=== PATIENT | male | born 1960 | race African-American/Black ===

== ENCOUNTER 2018-10-04 04:38 | Inpatient (IN) | payer SELFPAY ==
[2018-10-04 05:13] LABS: #Eosinphils 0.1 thou/uL (0.0-0.7); #Lymphocytes 2.4 thou/uL (1.20-3.40); #Monocytes 1.1 thou/uL (0.11-0.59); #Neutrophils 9.1 thou/uL (1.40-6.50); %Basophils 0.4 % (0.0-1.0); %Eosinophils 0.5 % (0.0-10.0); %Monocytes 8.4 % (0.0-10.0); %Neutrophils 71.8 % (42.0-75.0); Hemoglobin 12.7 g/dL (14.0-18.0); Platelet Count 207 thou/uL (130-400); RBC Distribution Width 12.8 % (11.5-14.5); Red Blood Cell (RBC) Count 4.23 mill/uL (4.70-6.10); White Blood Cell (WBC) Count 12.6 thou/uL (4.8-10.8)
[2018-10-04 05:37] LABS: ALT (SGPT) 116 U/L (8-55); AST (SGOT) 519 U/L (5-34); Albumin 3.9 g/dL (3.5-5.0); Alkaline Phosphatase 45 U/L (40-150); Anion Gap 13 mmol/L (10-20); BUN (Urea Nitrogen) 22 mg/dL (8.4-25.7); Bilirubin, Total 0.6 mg/dL (0.2-1.2); Calc. Creatinine Clearance 0 mL/min (70-130); Calcium 8.5 mg/dL (7.8-10.44); Carbon Dioxide 22 mmol/L (22-29); Chloride 105 mmol/L (98-107); Estimated GFR-MDRD 87; Globulin 2.7 g/dL (2.4-3.5); Glucose 99 mg/dL (70-105); Potassium 4.1 mmol/L (3.5-5.1); Protein, Total 6.6 g/dL (6.0-8.3); Sodium 136 mmol/L (136-145)
[2018-10-04 06:14] LABS: CK (CPK) 35920 U/L (30-200)
[2018-10-04 06:39] LABS: Anion Gap 14 mmol/L (10-20); BUN (Urea Nitrogen) 21 mg/dL (8.4-25.7); Calc. Creatinine Clearance 0 mL/min (70-130); Calcium 8.5 mg/dL (7.8-10.44); Carbon Dioxide 21 mmol/L (22-29); Chloride 105 mmol/L (98-107); Estimated GFR-MDRD Greater than 90; Glucose 103 mg/dL (70-105); Potassium 4.1 mmol/L (3.5-5.1); Sodium 136 mmol/L (136-145)
[2018-10-04 07:27] LABS: CKMB 367.3 ng/mL (0-6.6)
--- NOTE | 2018-10-04 08:56 | ULT ---
RIGHT UPPER QUADRANT ULTRASOUND: INDICATION: Low back pain for 2 days. COMPARISON: Prior CTA of the chest and abdomen dated 10/03/2018. FINDINGS: No visible gallstones seen within the gallbladder. No gallbladder wall thickening or pericholecystic fluid is evident. No sonographic Sharma's sign is reported. The common bile duct measured 4.2 mm. No focal hepatic lesion is evident. The right kidney measured 10.6 x 6.3 x 5.3 cm. No definite foc al renal lesion or hydronephrosis is evident. No free fluid is identified. IMPRESSION: No acute sonographic abnormality in the right upper quadrant. POS: BH
[2018-10-04] MEDS ORDERED: Lactated Ringer's 1,000 ML IV SCH (09:15)
[2018-10-04] MEDS ORDERED: Ondansetron PF 4 MG/2 ML Vial IVP PRN (10:10)
[2018-10-04] MEDS ORDERED: Diazepam 5 MG TAB PO PRN (10:58)
[2018-10-04] MEDS ORDERED: Multivitamin W/ Minerals 1 TAB PO SCH (11:00)
[2018-10-04] MEDS ORDERED: Thiamine HCl 200 MG/2 ML VIAL IM SCH (11:00)
[2018-10-04] MEDS ORDERED: Diazepam 5 MG TAB PO SCH (11:00)
[2018-10-04] MEDS ORDERED: Folic Acid 1 MG TAB PO SCH (11:00)
[2018-10-04] MEDS ORDERED: Enoxaparin Sodium 40 MG/0.4 ML SYRINGE SC SCH (11:00)
--- NOTE | 2018-10-04 11:45 | HP ---
PRIMARY CARE PHYSICIAN: Dr. Joss Fletcher. CHIEF COMPLAINT: Back pain. HISTORY OF PRESENT ILLNESS: A 57-year-old male patient with known history of hypertension and gout as well as chronic alcohol abuse, chronic tobacco use, who presented to [place] [facility] due to acute onset of severe back pain after drinking some whiskey as well as smoking some weed, which he thinks was laced with something. On presentation to the [place] [facility], the patient was noted to be hypotensive with severe back pain. He was treated with IV fluid with improvement in blood pressure. Further evaluation showed elevated lactic acid as well as leukocytosis. The patient also was found to have markedly elevated CK, more than 38,000 as well as acute increase in creatinine. He also was started on antibiotic therapy with vancomycin and Zosyn. He received about 4 L of crystalloid with improvement in creatinine, but CPK was trending up, hence the patient was transferred to the ER here for further evaluation and treatment. The patient continues to complain of back pain. Back pain improves with analgesic. PAST MEDICAL HISTORY: 1. Hypertension, on enalapril and hydrochlorothiazide. 2. Depression. 3. Gouty arthropathy. PAST SURGICAL HISTORY: None. FAMILY HISTORY: Significant for hypertension in mother and prostate cancer in father. Father is late. SOCIAL HISTORY: The patient lives with spouse. He reportedly drinks more than 5 drinks every day. He smokes about 2 to 3 packs of cigarettes daily. He also chews tobacco and also uses marijuana. He, however, denied IV drug use. ALLERGIES: NO KNOWN DRUG ALLERGY REPORTED. HOME MEDICATIONS: 1. Hydrochlorothiazide 25 mg p.o. daily. 2. Allopurinol 100 mg p.o. daily. 3. Enalapril 10 mg p.o. daily. REVIEW OF SYSTEMS: A 12-point review of systems performed was negative other than pertinent positives and negatives included in the history of present illness. PHYSICAL EXAMINATION: VITAL SIGNS: On presentation to [place] [facility], blood pressure was noticed to be 90/50 with pulse 80, respiratory rate 22, temperature of 97.7, SpO2 of 99 on room air. Pain was rated at 10/10. Current vitals here shows temperature 98.6, pulse 75, respiratory rate 24, SpO2 99 on room air, blood pressure is 113/57. GENERAL: Obese male, in no obvious distress. Afebrile, anicteric, acyanotic. HEENT: Normocephalic, atraumatic. Pupils are equal and reacting to light. Oral mucosa is moist. NECK: Supple, nontender with no masses or lymphadenopathy. RESPIRATORY: Good air entry bilaterally with no obvious crackle or rhonchi or use of accessory muscles. CARDIOVASCULAR: Regular rhythm and rate with normal heart sounds 1 and 2. No obvious murmur was appreciated. GI: Obese, soft, nontender, nondistended with normal bowel sounds. MUSCULOSKELETAL: Lower back tenderness noticed. Lower extremities are grossly normal with no edema or erythema. The patient moves all extremities. NEUROLOGIC: Conscious, alert, oriented x3 with appropriate mental status. Cranial nerves 2 through 12 are intact. The patient moves all extremities. There is no obvious tremor. DIAGNOSTIC DATA: CBC today showed WBC count of 12.6, hemoglobin of 12.7, MCV of 88, platelet of 207. Of note, WBC count was 17.2 with hemoglobin of 14.0 on presentation to [facility]. CMP today, October 04, 2018, showed sodium of 136, potassium 4.1, chloride 105, CO2 of 22, BUN 22, creatinine 1.07, glucose 99, calcium 8.5, total bilirubin 0.6, AST 519, ALT 116, alkaline phosphatase 45, total protein 6.6, albumin 3.9, globulin 2.7. Of note, on presentation to [facility] on October 03, sodium was 131, potassium was 5.4, chloride was 99, CO2 was 19, creatinine was 2.1, and calcium 9.8. Lactic acid on presentation to [facility] was 2.8, currently is 2.5. Troponin obtained today showed 0.056. CK at [facility] showed 38,180, repeat here today is 35,920. Urine drug screen performed at [facility] showed proteinuria of 100, large blood, negative nitrite and leukocyte esterase. Microscopy showed rbc's 4 to 6, wbc's 0 to 3. Urine drug screen was positive for opioids, cocaine, and cannabinoids. Coagulation panel performed on October 03 showed PT 13.2, INR 1.0, PTT 24. CT scan of the abdomen with aortic dissection protocol showed no evidence of aortic aneurysm or dissection. However, tiny gallstones were noticed in the gallbladder incidentally. Degenerative disease of the lower back also was noticed. EKG performed at [facility] showed normal sinus rhythm with rate of 91. No obvious ischemic changes were noticed. Repeat EKG performed here today, October 04, showed normal sinus rhythm with rate of 66 with no ischemic changes. ASSESSMENT: 1. Severe rhabdomyolysis. This most likely is due to recreational drug use. UDS is positive for cannabis, opioids, and cocaine. 2. Acute kidney injury. Creatinine on presentation was 2.1; on August 17, 2018, creatinine was 0.88. Creatinine has trended down to 1.01. 3. Hyperkalemia: Resolved. 4. Hyponatremia: Most likely due to fluid shift from rhabdomyolysis and dehydration with appropriate ADH secretion. Sodium level has improved. 5. Metabolic acidosis: Due to acute kidney injury. 6. Transaminitis: Due to recreational drug use and rhabdomyolysis. 7. Dehydration with hyponatremia, improving with IV fluid. 8. Cholelithiasis with no overt evidence of cholecystitis. 9. History of gouty arthropathy, on allopurinol. 10. Systemic inflammatory response syndrome with no overt evidence of acute infection. The patient was started on antibiotic, vancomycin at [facility] given stat, but it is clearly that is due to rhabdomyolysis and dehydration. 11. Lactic acidosis: Due to rhabdomyolysis and dehydration. 12. Chronic alcohol abuse with high risk for withdrawal symptoms. The patient denied prior seizures or withdrawal symptoms. 13. Chronic tobacco abuse. 14. Recreational drug use. PLAN: 1. We will start the patient on IV fluids normal saline at 500 mL/h given increase in CPK even with IV fluid. We will monitor CPK with a view to reducing fluid rate if numbers are trending down. We will monitor the patient closely to avoid fluid overload. We will plan to add diuretics to avoid fluid overload if needed. 2. We will hold antihypertensives at this time. 3. We will also discontinue antibiotics as there is no overt evidence of infection at this time. 4. We will start alcohol withdrawal protocol. Benzodiazepine p.r.n. will be provided. 5. Analgesic as needed will be provided for back pain. 6. DVT prophylaxis with Lovenox will be provided. 7. Diet: Heart healthy diet. 8. Code status: Full code. The patient's spouse is the surrogate decision maker. 9. We will also start nicotine replacement. Job ID: [id number]
[2018-10-04] MEDS: Sodium Chloride 0.9% 1,000 ML IV SCH ×7 (11:48→22:23)
[2018-10-04] MEDS: Nicotine 21 MG PATCH TD SCH (11:50)
[2018-10-04 12:46] VITALS: BMI 41.5
[2018-10-04] MEDS: Morphine 4 MG/ML VIAL SLOW IVP PRN ×2 (14:54→20:25)
[2018-10-04] MEDS: HYDROcodone/Acetaminophen 5/325 mg Tablet PO PRN (17:22)
[2018-10-04] MEDS ORDERED: Furosemide 40 MG/4 ML VIAL SLOW IVP PRN (19:17)
[2018-10-04] MEDS: Famotidine 20 MG TAB PO SCH (20:27)
[2018-10-04] MEDS: Bupropion 150 MG SR TAB PO SCH (20:27)
[2018-10-05] MEDS: Morphine 4 MG/ML VIAL SLOW IVP PRN ×2 (00:29→23:30)
[2018-10-05] MEDS: Sodium Chloride 0.9% 1,000 ML IV SCH ×12 (00:30→23:36)
[2018-10-05] MEDS ORDERED: Diazepam 5 MG TAB PO PRN (04:00)
[2018-10-05 06:49] LABS: #Eosinphils 0.1 thou/uL (0.0-0.7); #Lymphocytes 2.7 thou/uL (1.20-3.40); #Monocytes 0.9 thou/uL (0.11-0.59); #Neutrophils 5.3 thou/uL (1.40-6.50); %Basophils 0.5 % (0.0-1.0); %Eosinophils 0.9 % (0.0-10.0); %Lymphocytes 29.9 % (21.0-51.0); %Monocytes 9.5 % (0.0-10.0); %Neutrophils 59.3 % (42.0-75.0); Hemoglobin 11.8 g/dL (14.0-18.0); Mean Corpuscular HGB CONC 34.9 g/dL (32.0-36.0); Mean Corpuscular Hemoglobin 31.2 pg (27.0-31.0); Mean Corpuscular Volume 89.4 fL (78.0-98.0); Mean Platelet Volume 8.3 fL (7.4-10.4); Platelet Count 172 thou/uL (130-400); RBC Distribution Width 12.9 % (11.5-14.5); Red Blood Cell (RBC) Count 3.78 mill/uL (4.70-6.10); White Blood Cell (WBC) Count 8.9 thou/uL (4.8-10.8)
[2018-10-05 07:13] LABS: ALT (SGPT) 111 U/L (8-55); AST (SGOT) 375 U/L (5-34); Albumin 3.3 g/dL (3.5-5.0); Alkaline Phosphatase 37 U/L (40-150); Anion Gap 10 mmol/L (10-20); BUN (Urea Nitrogen) 13 mg/dL (8.4-25.7); Bilirubin, Total 0.5 mg/dL (0.2-1.2); Calc. Creatinine Clearance 184 mL/min (70-130); Carbon Dioxide 24 mmol/L (22-29); Chloride 109 mmol/L (98-107); Estimated GFR-MDRD Greater than 90; Globulin 2.3 g/dL (2.4-3.5); Glucose 91 mg/dL (70-105); Potassium 4.4 mmol/L (3.5-5.1); Protein, Total 5.6 g/dL (6.0-8.3); Sodium 139 mmol/L (136-145)
[2018-10-05 07:38] LABS: CK (CPK) 21433 U/L (30-200)
[2018-10-05] MEDS: Magnesium Oxide 400 MG TAB PO SCH (08:35)
[2018-10-05] MEDS: Folic Acid 1 MG TAB PO SCH (08:35)
[2018-10-05] MEDS: Thiamine 100 MG TAB PO SCH (08:35)
[2018-10-05] MEDS: Famotidine 20 MG TAB PO SCH ×2 (08:35→19:52)
[2018-10-05] MEDS: Bupropion 150 MG SR TAB PO SCH ×2 (08:35→19:51)
[2018-10-05] MEDS: Enoxaparin Sodium 40 MG/0.4 ML SYRINGE SC SCH (08:36)
[2018-10-05] MEDS ORDERED: Allopurinol 100 MG TAB PO SCH (09:00)
[2018-10-05] MEDS ORDERED: Bupropion 150 MG SR TAB PO SCH (09:00)
[2018-10-05] MEDS ORDERED: Multivitamin W/ Minerals 1 TAB PO SCH (09:00)
[2018-10-05] MEDS: Nicotine 21 MG PATCH TD SCH (11:13)
[2018-10-05] MEDS: HYDROcodone/Acetaminophen 5/325 mg Tablet PO PRN ×2 (13:49→19:52)
--- NOTE | 2018-10-05 14:40 | PDOC.PN ---
- Subjective Encounter Start Date: 10/05/18 Encounter Start Time: 11:38 Subjective: Admitted with acte severe back pain and found to haave rhabdomyolysis -: Also with MALU. -: Back pain has improved. - Objective Resuscitation Status - Order Detail: 10/04/18 10:10 Resuscitation Status Routine Resuscitation Status: FULL: Full Resuscitation Vital Signs & Weight: Vital Signs (12 hours) Temp Pulse Resp BP BP Pulse Ox 10/05/18 11:35 98.5 F 79 18 109/55 L 94 L 10/05/18 08:00 133/76 10/05/18 07:31 98.7 F 73 18 133/76 96 10/05/18 04:20 98.4 F 69 16 128/66 128/66 93 L Weight Weight 277 lb 9.6 oz I&O: 10/04/18 10/05/18 10/06/18 06:59 06:59 06:59 Intake Total 7979 240 Output Total 3450 Balance 4529 240 Result Diagrams: 10/05/18 05:54 10/05/18 05:54 Phys Exam - Physical Examination Constitutional: NAD HEENT: PERRLA, moist MMs, sclera anicteric Neck: no JVD, supple Respiratory: no wheezing, no rales, no rhonchi, clear to auscultation bilateral Cardiovascular: RRR, no significant murmur Gastrointestinal: soft, non-tender, no distention, positive bowel sounds obese Musculoskeletal: no edema, pulses present Vishnu back tenderness Neurological: non-focal Psychiatric: A&O x 3 Dx/Plan (1) Rhabdomyolysis Code(s): M62.82 - RHABDOMYOLYSIS Status: Acute (2) MALU (acute kidney injury) Code(s): N17.9 - ACUTE KIDNEY FAILURE, UNSPECIFIED Status: Acute (3) Chronic alcohol abuse Code(s): F10.10 - ALCOHOL ABUSE, UNCOMPLICATED Status: Acute (4) Tobacco abuse disorder Code(s): Z72.0 - TOBACCO USE Status: Acute (5) Polysubstance (excluding opioids) dependence, daily use Code(s): F19.20 - OTHER PSYCHOACTIVE SUBSTANCE DEPENDENCE, UNCOMPLICATED Status: Acute (6) Severe back pain Code(s): M54.9 - DORSALGIA, UNSPECIFIED Status: Acute (7) Dehydration with hyponatremia Code(s): E87.1 - HYPO-OSMOLALITY AND HYPONATREMIA Status: Acute (8) Hyperkalemia Code(s): E87.5 - HYPERKALEMIA Status: Acute (9) Transaminitis Code(s): R74.0 - NONSPEC ELEV OF LEVELS OF TRANSAMNS & LACTIC ACID DEHYDRGNSE Status: Acute - Plan Continue IVF at 500 cc/hr. CK still above 20,000 -: Start low dose lasix. -: Continue alcohol withdrawal protochol. -: Continue other treatments. Follow CMP and CK -: monitor closely for volume overload * .
[2018-10-05] MEDS ORDERED: Furosemide 40 MG TAB PO SCH (14:45)
[2018-10-06] MEDS: Sodium Chloride 0.9% 1,000 ML IV SCH ×12 (01:36→21:47)
[2018-10-06] MEDS: Acetaminophen 325 MG TAB PO PRN ×2 (05:24→18:21)
[2018-10-06] MEDS ORDERED: Furosemide 40 MG/4 ML VIAL SLOW IVP SCH (05:30)
[2018-10-06 05:33] LABS: ALT (SGPT) 104 U/L (8-55); AST (SGOT) 283 U/L (5-34); Albumin 3.2 g/dL (3.5-5.0); Alkaline Phosphatase 36 U/L (40-150); Anion Gap 10 mmol/L (10-20); BUN (Urea Nitrogen) 11 mg/dL (8.4-25.7); Bilirubin, Total 0.5 mg/dL (0.2-1.2); Calc. Creatinine Clearance 180 mL/min (70-130); Calcium 7.9 mg/dL (7.8-10.44); Carbon Dioxide 23 mmol/L (22-29); Chloride 109 mmol/L (98-107); Estimated GFR-MDRD Greater than 90; Globulin 2.4 g/dL (2.4-3.5); Glucose 94 mg/dL (70-105); Potassium 4.1 mmol/L (3.5-5.1); Protein, Total 5.6 g/dL (6.0-8.3); Sodium 138 mmol/L (136-145)
[2018-10-06 06:00] LABS: CK (CPK) 14351 U/L (30-200)
[2018-10-06] MEDS ORDERED: Furosemide 40 MG TAB PO SCH (07:30)
[2018-10-06] MEDS ORDERED: Bisacodyl 10 MG SUPP PR PRN (08:04)
[2018-10-06] MEDS ORDERED: Polyethylene Glycol 3350 17 GM Packet PO PRN (08:04)
--- NOTE | 2018-10-06 08:08 | PDOC.PN ---
- Subjective Encounter Start Date: 10/06/18 Encounter Start Time: 08:06 Subjective: Back pain has resolved. -: No new compalint. -: Denied chest pain or SOB or orthopnea - Objective Resuscitation Status - Order Detail: 10/04/18 10:10 Resuscitation Status Routine Resuscitation Status: FULL: Full Resuscitation Vital Signs & Weight: Vital Signs (12 hours) Temp Pulse Resp BP BP BP Pulse Ox 10/06/18 03:07 127/89 10/06/18 03:02 98.5 F 84 20 127/89 99 10/06/18 00:00 98.5 F 83 20 124/78 124/78 93 L Weight Weight 285 lb 8 oz I&O: 10/05/18 10/06/18 10/07/18 06:59 06:59 06:59 Intake Total 7979 14081 Output Total 3450 4025 Balance 4529 6976 Result Diagrams: 10/05/18 05:54 10/06/18 04:30 Phys Exam - Physical Examination Constitutional: NAD HEENT: PERRLA, moist MMs Neck: no JVD, supple Respiratory: no wheezing, no rales, no rhonchi, clear to auscultation bilateral Cardiovascular: RRR, no significant murmur Gastrointestinal: soft, non-tender, no distention, positive bowel sounds Musculoskeletal: no edema, pulses present Neurological: non-focal, moves all 4 limbs Psychiatric: A&O x 3 Dx/Plan (1) Rhabdomyolysis Code(s): M62.82 - RHABDOMYOLYSIS Status: Acute Comment: CK is trending downwards. Now [id number] (2) MALU (acute kidney injury) Code(s): N17.9 - ACUTE KIDNEY FAILURE, UNSPECIFIED Status: Acute Comment: Resolved. (3) Chronic alcohol abuse Code(s): F10.10 - ALCOHOL ABUSE, UNCOMPLICATED Status: Acute Comment: On withdrawal protochol (4) Tobacco abuse disorder Code(s): Z72.0 - TOBACCO USE Status: Acute Comment: On nicotine patch (5) Polysubstance (excluding opioids) dependence, daily use Code(s): F19.20 - OTHER PSYCHOACTIVE SUBSTANCE DEPENDENCE, UNCOMPLICATED Status: Acute Comment: Education and counselling provided (6) Severe back pain Code(s): M54.9 - DORSALGIA, UNSPECIFIED Status: Acute Comment: Resolved. (7) Dehydration with hyponatremia Code(s): E87.1 - HYPO-OSMOLALITY AND HYPONATREMIA Status: Acute (8) Hyperkalemia Code(s): E87.5 - HYPERKALEMIA Status: Acute Comment: Resolved. (9) Transaminitis Code(s): R74.0 - NONSPEC ELEV OF LEVELS OF TRANSAMNS & LACTIC ACID DEHYDRGNSE Status: Acute Comment: Levels are trending down. - Plan Continue NS at 500 cc/hr -: Increase lasix to 40 bid due to weight gain to prevent fluid overload -: Recheck CK and CMP in the am. * .
[2018-10-06] MEDS: Enoxaparin Sodium 40 MG/0.4 ML SYRINGE SC SCH (08:38)
[2018-10-06] MEDS: Magnesium Oxide 400 MG TAB PO SCH (08:38)
[2018-10-06] MEDS: Famotidine 20 MG TAB PO SCH ×2 (08:38→21:16)
[2018-10-06] MEDS: Folic Acid 1 MG TAB PO SCH (08:38)
[2018-10-06] MEDS: Thiamine 100 MG TAB PO SCH (08:38)
[2018-10-06] MEDS: Bupropion 150 MG SR TAB PO SCH ×2 (08:39→21:16)
[2018-10-06] MEDS: Nicotine 21 MG PATCH TD SCH (10:52)
[2018-10-06] MEDS: Furosemide 40 MG TAB PO SCH (13:27)
[2018-10-06] MEDS: HYDROcodone/Acetaminophen 5/325 mg Tablet PO PRN ×2 (14:37→21:16)
[2018-10-06] MEDS: Ondansetron ODT 4 MG TAB PO PRN (14:38)
[2018-10-07] MEDS: Sodium Chloride 0.9% 1,000 ML IV SCH ×10 (00:07→21:56)
[2018-10-07] MEDS ORDERED: Furosemide 40 MG/4 ML VIAL SLOW IVP SCH (01:45)
[2018-10-07 03:31] LABS: ALT (SGPT) 109 U/L (8-55); AST (SGOT) 234 U/L (5-34); Albumin 3.6 g/dL (3.5-5.0); Alkaline Phosphatase 43 U/L (40-150); Anion Gap 12 mmol/L (10-20); BUN (Urea Nitrogen) 11 mg/dL (8.4-25.7); Bilirubin, Total 0.6 mg/dL (0.2-1.2); Calc. Creatinine Clearance 180 mL/min (70-130); Calcium 8.6 mg/dL (7.8-10.44); Carbon Dioxide 23 mmol/L (22-29); Chloride 107 mmol/L (98-107); Estimated GFR-MDRD Greater than 90; Globulin 2.9 g/dL (2.4-3.5); Glucose 103 mg/dL (70-105); Potassium 3.8 mmol/L (3.5-5.1); Protein, Total 6.5 g/dL (6.0-8.3); Sodium 138 mmol/L (136-145)
[2018-10-07 04:00] LABS: CK (CPK) 8982 U/L (30-200)
[2018-10-07] MEDS: Furosemide 40 MG TAB PO SCH ×2 (06:26→13:47)
--- NOTE | 2018-10-07 07:16 | RAD ---
CHEST ONE VIEW: INDICATIONS: Shortness of breath. Edema. COMPARISON: None. FINDINGS: The cardiac silhouette is mildly prominent with pulmonary vascular congestion. No air space consolid ation or pleural effusion is evident. No pneumothorax is noted. IMPRESSION: Mild cardiomegaly with pulmonary vascular congestion. POS: BH
[2018-10-07] MEDS: Enoxaparin Sodium 40 MG/0.4 ML SYRINGE SC SCH (07:57)
[2018-10-07] MEDS: Ondansetron ODT 4 MG TAB PO PRN ×2 (07:58→17:52)
[2018-10-07] MEDS: Thiamine 100 MG TAB PO SCH (07:58)
[2018-10-07] MEDS: HYDROcodone/Acetaminophen 5/325 mg Tablet PO PRN ×2 (07:58→17:51)
[2018-10-07] MEDS: Bupropion 150 MG SR TAB PO SCH ×2 (07:58→21:18)
[2018-10-07] MEDS: Famotidine 20 MG TAB PO SCH ×2 (07:59→21:18)
[2018-10-07] MEDS: Magnesium Oxide 400 MG TAB PO SCH (07:59)
[2018-10-07] MEDS: Folic Acid 1 MG TAB PO SCH (07:59)
--- NOTE | 2018-10-07 08:44 | PDOC.PN ---
- Subjective Encounter Start Date: 10/07/18 Encounter Start Time: 08:41 Subjective: Had SOB and difficulty breathing last night. -: Recieved lasix with improvement - Objective Resuscitation Status - Order Detail: 10/04/18 10:10 Resuscitation Status Routine Resuscitation Status: FULL: Full Resuscitation Vital Signs & Weight: Vital Signs (12 hours) Temp Pulse Resp BP Pulse Ox 10/07/18 08:00 98.7 F 79 18 138/98 H 95 10/07/18 04:56 99.4 F 79 19 151/88 H 92 L 10/07/18 01:32 75 146/88 H Weight Weight 279 lb 8 oz I&O: 10/06/18 10/07/18 10/08/18 06:59 06:59 06:59 Intake Total 19762 5667 Output Total 4020 5800 Balance 6976 -133 Result Diagrams: 10/05/18 05:54 10/07/18 01:32 Phys Exam - Physical Examination Constitutional: NAD obese HEENT: PERRLA Neck: no JVD, supple Respiratory: no wheezing, no rhonchi fair air entry with few bibasal crackles Cardiovascular: RRR, no significant murmur Gastrointestinal: soft, non-tender, no distention, positive bowel sounds mild bilateral leg edema Neurological: non-focal, moves all 4 limbs Psychiatric: A&O x 3 Dx/Plan (1) Rhabdomyolysis Code(s): M62.82 - RHABDOMYOLYSIS Status: Acute Comment: CK is trending downwards. Now [id number] (2) MALU (acute kidney injury) Code(s): N17.9 - ACUTE KIDNEY FAILURE, UNSPECIFIED Status: Acute Comment: Resolved. (3) Chronic alcohol abuse Code(s): F10.10 - ALCOHOL ABUSE, UNCOMPLICATED Status: Acute Comment: On withdrawal protochol (4) Tobacco abuse disorder Code(s): Z72.0 - TOBACCO USE Status: Acute Comment: On nicotine patch (5) Polysubstance (excluding opioids) dependence, daily use Code(s): F19.20 - OTHER PSYCHOACTIVE SUBSTANCE DEPENDENCE, UNCOMPLICATED Status: Acute Comment: Education and counselling provided (6) Severe back pain Code(s): M54.9 - DORSALGIA, UNSPECIFIED Status: Acute Comment: Resolved. (7) Dehydration with hyponatremia Code(s): E87.1 - HYPO-OSMOLALITY AND HYPONATREMIA Status: Acute (8) Hyperkalemia Code(s): E87.5 - HYPERKALEMIA Status: Acute Comment: Resolved. (9) Transaminitis Code(s): R74.0 - NONSPEC ELEV OF LEVELS OF TRANSAMNS & LACTIC ACID DEHYDRGNSE Status: Acute Comment: Levels are trending down. - Plan Decrease IVF to 250 cc/hr due to SOB and edema -: Continie lasix po bid. -: Continue other treatments. -: Monitor CMP and CK. * .
[2018-10-07] MEDS: Nicotine 21 MG PATCH TD SCH (10:02)
[2018-10-08] MEDS: HYDROcodone/Acetaminophen 5/325 mg Tablet PO PRN ×4 (01:58→19:16)
[2018-10-08] MEDS: Sodium Chloride 0.9% 1,000 ML IV SCH ×2 (01:58→06:04)
[2018-10-08 05:30] LABS: ALT (SGPT) 91 U/L (8-55); AST (SGOT) 122 U/L (5-34); Albumin 3.3 g/dL (3.5-5.0); Alkaline Phosphatase 37 U/L (40-150); Anion Gap 13 mmol/L (10-20); BUN (Urea Nitrogen) 10 mg/dL (8.4-25.7); Bilirubin, Total 0.6 mg/dL (0.2-1.2); CK (CPK) 3142 U/L (30-200); Calc. Creatinine Clearance 174 mL/min (70-130); Calcium 8.7 mg/dL (7.8-10.44); Carbon Dioxide 26 mmol/L (22-29); Chloride 104 mmol/L (98-107); Estimated GFR-MDRD Greater than 90; Globulin 2.6 g/dL (2.4-3.5); Glucose 91 mg/dL (70-105); Potassium 3.6 mmol/L (3.5-5.1); Protein, Total 5.9 g/dL (6.0-8.3); Sodium 139 mmol/L (136-145)
[2018-10-08] MEDS: Furosemide 40 MG TAB PO SCH ×2 (06:05→14:21)
[2018-10-08] MEDS ORDERED: Cepastat Lozenges 1 LOZ PO PRN (07:11)
[2018-10-08] MEDS ORDERED: Bisacodyl 10 MG SUPP PR PRN (07:11)
[2018-10-08] MEDS ORDERED: Artificial Tears 18 DROP/0.9 ML EA EYE PRN (07:11)
[2018-10-08] MEDS ORDERED: Loratadine 10 MG TAB PO PRN (07:11)
[2018-10-08] MEDS ORDERED: Acetaminophen 500 MG TAB PO PRN (07:11)
[2018-10-08] MEDS ORDERED: hydrALAZINE 20 MG/ML VIAL SLOW IVP PRN (07:11)
[2018-10-08] MEDS ORDERED: Diabetic Tussin 200 MG/10 ML UDCUP PO PRN (07:11)
[2018-10-08] MEDS ORDERED: Sodium Chloride 0.65% Nasal 44 ML BOT EA NARE PRN (07:11)
[2018-10-08] MEDS ORDERED: Eucerin (Mineral Oil/Petrolatum,White) 30 gm Jar TOP PRN (07:11)
[2018-10-08] MEDS ORDERED: Loperamide HCl 2 MG CAP PO PRN (07:11)
[2018-10-08] MEDS ORDERED: Zolpidem Tartrate 5 MG TAB PO PRN (07:11)
[2018-10-08] MEDS: Thiamine 100 MG TAB PO SCH (08:22)
[2018-10-08] MEDS: Famotidine 20 MG TAB PO SCH ×2 (08:22→20:12)
[2018-10-08] MEDS: Bupropion 150 MG SR TAB PO SCH ×2 (08:22→20:13)
[2018-10-08] MEDS: Magnesium Oxide 400 MG TAB PO SCH (08:22)
[2018-10-08] MEDS: Enoxaparin Sodium 40 MG/0.4 ML SYRINGE SC SCH (08:22)
[2018-10-08] MEDS: Folic Acid 1 MG TAB PO SCH (08:22)
--- NOTE | 2018-10-08 10:28 | PDOC.PN ---
- Subjective Encounter Start Date: 10/08/18 Encounter Start Time: 07:20 -: old records requested/rev he feels bloated, he has mild muscle pain on left side of back, able to take PO , he is on room air - Objective Resuscitation Status - Order Detail: 10/04/18 10:10 Resuscitation Status Routine Resuscitation Status: FULL: Full Resuscitation MAR Reviewed: Yes Vital Signs & Weight: Vital Signs (12 hours) Temp Pulse Resp BP Pulse Ox 10/08/18 04:25 97.9 F 64 18 111/60 93 L Weight Weight 283 lb 0.16 oz I&O: 10/07/18 10/08/18 10/09/18 06:59 06:59 06:59 Intake Total 5667 3450 Output Total 5800 2900 Balance -133 550 Result Diagrams: 10/05/18 05:54 10/08/18 04:56 EKG Reviewed by me: Yes Phys Exam - Physical Examination Constitutional: NAD HEENT: PERRLA, moist MMs, sclera anicteric Neck: no JVD, supple Respiratory: no wheezing, no rales, no rhonchi Cardiovascular: RRR, no significant murmur, no rub Gastrointestinal: soft, non-tender, no distention, positive bowel sounds obesity limiting exam Musculoskeletal: no edema, pulses present Neurological: non-focal, normal sensation, moves all 4 limbs Lymphatic: no nodes Psychiatric: normal affect, A&O x 3 Skin: no rash, normal turgor Dx/Plan (1) MALU (acute kidney injury) Code(s): N17.9 - ACUTE KIDNEY FAILURE, UNSPECIFIED Status: Resolved Comment : (2) Dehydration with hyponatremia Code(s): E87.1 - HYPO-OSMOLALITY AND HYPONATREMIA Status: Resolved (3) Hyperkalemia Code(s): E87.5 - HYPERKALEMIA Status: Resolved Comment: (4) Rhabdomyolysis Code(s): M62.82 - RHABDOMYOLYSIS Status: Acute Comment: Improving (5) Transaminitis Code(s): R74.0 - NONSPEC ELEV OF LEVELS OF TRANSAMNS & LACTIC ACID DEHYDRGNSE Status: Acute Comment: Levels are trending down. (6) Anxiety and depression Code(s): F41.9 - ANXIETY DISORDER, UNSPECIFIED; F32.9 - MAJOR DEPRESSIVE DISORDER, SINGLE EPISODE, UNSPECIFIED Status: Chronic (7) Chronic alcohol abuse Code(s): F10.10 - ALCOHOL ABUSE, UNCOMPLICATED Status: Chronic Comment: (8) Polysubstance (excluding opioids) dependence, daily use Code(s): F19.20 - OTHER PSYCHOACTIVE SUBSTANCE DEPENDENCE, UNCOMPLICATED Status: Chronic Comment: (9) Tobacco abuse disorder Code(s): Z72.0 - TOBACCO USE Status: Chronic Comment: - Plan cont current plan of care, plan discussed w/ family * he is now stable, will DC IVF as his BNP going up and has congestion on xray * encourage po intake and ambulate * transfer to medical * medication reviewed as below * symptomatic treatment. * repeat labs tomorrow Review of Systems - Review of Systems ENT: negative: Ear Pain, Ear Discharge, Nose Pain, Nose Discharge, Nose Congestion, Mouth Pain, Mouth Swelling, Throat Pain, Throat Swelling, Other Respiratory: SOB with Excertion. negative: Cough, Dry, Shortness of Breath, Hemoptysis, Pleuritic Pain, Sputum, Wheezing Cardiovascular: negative: chest pain, palpitations, orthopnea, paroxysmal nocturnal dyspnea, edema, light headedness, other Gastrointestinal: negative: Nausea, Vomiting, Abdominal Pain, Diarrhea, Constipation, Melena, Hematochezia, Other Genitourinary: negative: Dysuria, Frequency, Incontinence, Hematuria, Retention , Other Musculoskeletal: Back Pain. negative: Neck Pain, Shoulder Pain, Arm Pain, Hand Pain, Leg Pain, Foot Pain, Other Skin: negative: Rash, Lesions, Fernando, Bruising, Other - Medications/Allergies Allergies/Adverse Reactions: Allergies Allergy/AdvReac Type Severity Reaction Status Date / Time No Known Allergies Allergy Verified 10/04/18 12:33 Medications: Current Medications Acetaminophen (Tylenol) 650 mg PO Q4H PRN PRN Reason: Headache/Fever/Mild Pain (1-3) Last Admin: 10/06/18 18:21 Dose: 650 mg Acetaminophen (Tylenol) 500 mg PO Q6H PRN PRN Reason: Mild Pain (1-3) Hydrocodone Bitart/Acetaminophen ([place] 5/325) 1 tab PO Q4H PRN PRN Reason: Moderate Pain (4-6) Last Admin: 10/08/18 08:21 Dose: 1 tab Artificial Tears (Tears Naturale) 2 drop EA EYE PRN PRN PRN Reason: Dry Eyes Bisacodyl (Dulcolax) 10 mg CA DAILYPRN PRN PRN Reason: Constipation Bisacodyl (Dulcolax) 10 mg CA DAILYPRN PRN PRN Reason: Constipation Bupropion HCl (Wellbutrin Sr) 150 mg PO BID [facility] Last Admin: 10/08/18 08:22 Dose: 150 mg Diazepam (Valium) 5 mg PO Q4H PRN PRN Reason: FOR ASE 10 OR GREATER Enoxaparin Sodium (Lovenox) 40 mg SC 0900 [facility] Last Admin: 10/08/18 08:22 Dose: 40 mg Famotidine (Pepcid) 20 mg PO BID [facility] Last Admin: 10/08/18 08:22 Dose: 20 mg Folic Acid (Folvite) 1 mg PO DAILY [facility] Last Admin: 10/08/18 08:22 Dose: 1 mg Furosemide (Lasix) 40 mg PO 0600,1400 [facility] Last Admin: 10/08/18 06:05 Dose: 40 mg Guaifenesin (Robitussin Sf) 200 mg PO Q4H PRN PRN Reason: Cough Hydralazine HCl (Apresoline) 10 mg SLOW IVP Q4H PRN PRN Reason: SBP > 180 and HR < 70 Loperamide HCl (Imodium) 2 mg PO PRN PRN PRN Reason: Diarrhea/Loose Stools Loratadine (Claritin) 10 mg PO DAILYPRN PRN PRN Reason: Sinus Symptoms Magnesium Oxide (Magnesium Oxide) 400 mg PO DAILY [facility] Last Admin: 10/08/18 08:22 Dose: 400 mg Mineral Oil/White Petrolatum (Eucerin Cream) 0 gm TOP BIDPRN PRN PRN Reason: Dry Skin Morphine Sulfate (Morphine) 4 mg SLOW IVP Q4H PRN PRN Reason: Severe Pain (7-10) Last Admin: 10/05/18 23:30 Dose: 4 mg Nicotine (Nicoderm Patch) 21 mg TD Q24HR [facility] Last Admin: 10/07/18 10:02 Dose: 21 mg Ondansetron HCl (Zofran Odt) 4 mg PO Q6H PRN PRN Reason: Nausea/Vomiting Last Admin: 10/07/18 17:52 Dose: 4 mg Ondansetron HCl (Zofran) 4 mg IVP Q6H PRN PRN Reason: Nausea/Vomiting Polyethylene Glycol (Miralax) 17 gm PO BIDPRN PRN PRN Reason: Constipation Sodium Chloride ([place] Nasal [place] 0.65%) 0 ml EA NARE QIDPRN PRN PRN Reason: Nasal Congestion Thiamine HCl (Thiamine) 100 mg PO DAILY [place] Last Admin: 10/08/18 08:22 Dose: 100 mg Throat Lozenges (Cepastat Lozenges) 1 aldo PO Q2H PRN PRN Reason: Sore Throat Zolpidem Tartrate (Ambien) 5 mg PO HSPRN PRN PRN Reason: Insomnia
[2018-10-08] MEDS: Nicotine 21 MG PATCH TD SCH (12:13)
[2018-10-08 16:35] LABS: Bilirubin Negative (Negative); Blood, Urine Negative (Negative); Clarity CLEAR (Clear); Glucose, Urine (Dipstick) Negative (Negative); Leukocyte Negative (Negative); Nitrite Negative (Negative); Protein, Urine (Dipstick) Negative (Neg-Trace); Specific Gravity, Urine 1.007 (1.002-1.036); Urobilinogen 0.2 mg/dL (0.2-1.0)
[2018-10-09] MEDS: HYDROcodone/Acetaminophen 5/325 mg Tablet PO PRN ×3 (00:38→11:09)
[2018-10-09] MEDS: Morphine 4 MG/ML VIAL SLOW IVP PRN ×2 (04:14→09:12)
[2018-10-09] MEDS: Furosemide 40 MG TAB PO SCH (05:45)
[2018-10-09 07:05] LABS: ALT (SGPT) 79 U/L (8-55); AST (SGOT) 72 U/L (5-34); Albumin 3.4 g/dL (3.5-5.0); Alkaline Phosphatase 39 U/L (40-150); Anion Gap 10 mmol/L (10-20); BUN (Urea Nitrogen) 9 mg/dL (8.4-25.7); Bilirubin, Total 0.5 mg/dL (0.2-1.2); CK (CPK) 1457 U/L (30-200); Calc. Creatinine Clearance 163 mL/min (70-130); Calcium 9.2 mg/dL (7.8-10.44); Carbon Dioxide 31 mmol/L (22-29); Chloride 102 mmol/L (98-107); Estimated GFR-MDRD Greater than 90; Globulin 2.8 g/dL (2.4-3.5); Glucose 94 mg/dL (70-105); Potassium 3.8 mmol/L (3.5-5.1); Protein, Total 6.2 g/dL (6.0-8.3); Sodium 139 mmol/L (136-145)
[2018-10-09] MEDS: Bupropion 150 MG SR TAB PO SCH (09:08)
[2018-10-09] MEDS: Enoxaparin Sodium 40 MG/0.4 ML SYRINGE SC SCH (09:09)
[2018-10-09] MEDS: Folic Acid 1 MG TAB PO SCH (09:09)
[2018-10-09] MEDS: Famotidine 20 MG TAB PO SCH (09:09)
[2018-10-09] MEDS: Magnesium Oxide 400 MG TAB PO SCH (09:09)
[2018-10-09] MEDS: Thiamine 100 MG TAB PO SCH (09:09)
--- NOTE | 2018-10-09 09:22 | PDOC.PN ---
- Subjective Encounter Start Date: 10/09/18 Encounter Start Time: 07:30 Patient seen and examined. No new complaints. No overnight events - Objective Resuscitation Status - Order Detail: 10/04/18 10:10 Resuscitation Status Routine Resuscitation Status: FULL: Full Resuscitation MAR Reviewed: Yes Vital Signs & Weight: Vital Signs (12 hours) Temp Pulse Resp BP BP Pulse Ox 10/09/18 07:16 97.9 F 61 20 156/95 H 96 10/09/18 04:06 98.5 F 69 20 128/79 95 10/09/18 00:32 98.5 F 80 20 140/85 95 Weight Weight 268 lb 1.6 oz I&O: 10/08/18 10/09/18 10/10/18 06:59 06:59 06:59 Intake Total 3450 931 Output Total 2900 Balance 550 931 Result Diagrams: 10/05/18 05:54 10/09/18 05:50 Phys Exam - Physical Examination Constitutional: NAD HEENT: PERRLA, moist MMs, sclera anicteric Neck: no JVD, supple Respiratory: no wheezing, no rales, no rhonchi Cardiovascular: RRR, no significant murmur, no rub Gastrointestinal: soft, non-tender, no distention, positive bowel sounds Musculoskeletal: no edema, pulses present Neurological: non-focal, normal sensation, moves all 4 limbs Lymphatic: no nodes Psychiatric: normal affect, A&O x 3 Skin: no rash, normal turgor Dx/Plan (1) MALU (acute kidney injury) Code(s): N17.9 - ACUTE KIDNEY FAILURE, UNSPECIFIED Status: Resolved Comment : (2) Dehydration with hyponatremia Code(s): E87.1 - HYPO-OSMOLALITY AND HYPONATREMIA Status: Resolved (3) Hyperkalemia Code(s): E87.5 - HYPERKALEMIA Status: Resolved Comment: (4) Rhabdomyolysis Code(s): M62.82 - RHABDOMYOLYSIS Status: Acute Comment: Improving (5) Transaminitis Code(s): R74.0 - NONSPEC ELEV OF LEVELS OF TRANSAMNS & LACTIC ACID DEHYDRGNSE Status: Acute Comment: Levels are trending down. (6) Anxiety and depression Code(s): F41.9 - ANXIETY DISORDER, UNSPECIFIED; F32.9 - MAJOR DEPRESSIVE DISORDER, SINGLE EPISODE, UNSPECIFIED Status: Chronic (7) Chronic alcohol abuse Code(s): F10.10 - ALCOHOL ABUSE, UNCOMPLICATED Status: Chronic Comment: (8) Polysubstance (excluding opioids) dependence, daily use Code(s): F19.20 - OTHER PSYCHOACTIVE SUBSTANCE DEPENDENCE, UNCOMPLICATED Status: Chronic Comment: (9) Tobacco abuse disorder Code(s): Z72.0 - TOBACCO USE Status: Chronic Comment: - Plan cont current plan of care * medication reviewed as below * symptomatic treatment * see my discharge jake. Review of Systems - Review of Systems ENT: negative: Ear Pain, Ear Discharge, Nose Pain, Nose Discharge, Nose Congestion, Mouth Pain, Mouth Swelling, Throat Pain, Throat Swelling, Other Respiratory: negative: Cough, Dry, Shortness of Breath, Hemoptysis, SOB with Excertion, Pleuritic Pain, Sputum, Wheezing Cardiovascular: negative: chest pain, palpitations, orthopnea, paroxysmal nocturnal dyspnea, edema, light headedness, other Gastrointestinal: negative: Nausea, Vomiting, Abdominal Pain, Diarrhea, Constipation, Melena, Hematochezia, Other Genitourinary: negative: Dysuria, Frequency, Incontinence, Hematuria, Retention , Other Musculoskeletal: negative: Neck Pain, Shoulder Pain, Arm Pain, Back Pain, Hand Pain, Leg Pain, Foot Pain, Other - Medications/Allergies Allergies/Adverse Reactions: Allergies Allergy/AdvReac Type Severity Reaction Status Date / Time No Known Allergies Allergy Verified 10/04/18 12:33 Medications: Current Medications Acetaminophen (Tylenol) 650 mg PO Q4H PRN PRN Reason: Headache/Fever/Mild Pain (1-3) Last Admin: 10/06/18 18:21 Dose: 650 mg Acetaminophen (Tylenol) 500 mg PO Q6H PRN PRN Reason: Mild Pain (1-3) Hydrocodone Bitart/Acetaminophen ([place] 5/325) 1 tab PO Q4H PRN PRN Reason: Moderate Pain (4-6) Last Admin: 10/09/18 05:45 Dose: 1 tab Artificial Tears (Tears Naturale) 2 drop EA EYE PRN PRN PRN Reason: Dry Eyes Bisacodyl (Dulcolax) 10 mg [place] DAILYPRN PRN PRN Reason: Constipation Bisacodyl (Dulcolax) 10 mg [place] DAILYPRN PRN PRN Reason: Constipation Bupropion HCl (Wellbutrin Sr) 150 mg PO BID [facility] Last Admin: 10/09/18 09:08 Dose: 150 mg Diazepam (Valium) 5 mg PO Q4H PRN PRN Reason: FOR ASE 10 OR GREATER Enoxaparin Sodium (Lovenox) 40 mg SC 0900 [facility] Last Admin: 10/09/18 09:09 Dose: Not Given Famotidine (Pepcid) 20 mg PO BID [facility] Last Admin: 10/09/18 09:09 Dose: 20 mg Folic Acid (Folvite) 1 mg PO DAILY [facility] Last Admin: 10/09/18 09:09 Dose: 1 mg Furosemide (Lasix) 40 mg PO 0600,1400 [facility] Last Admin: 10/09/18 05:45 Dose: 40 mg Guaifenesin (Robitussin Sf) 200 mg PO Q4H PRN PRN Reason: Cough Hydralazine HCl (Apresoline) 10 mg SLOW IVP Q4H PRN PRN Reason: SBP > 180 and HR < 70 Loperamide HCl (Imodium) 2 mg PO PRN PRN PRN Reason: Diarrhea/Loose Stools Loratadine (Claritin) 10 mg PO DAILYPRN PRN PRN Reason: Sinus Symptoms Magnesium Oxide (Magnesium Oxide) 400 mg PO DAILY [facility] Last Admin: 10/09/18 09:09 Dose: 400 mg Mineral Oil/White Petrolatum (Eucerin Cream) 0 gm TOP BIDPRN PRN PRN Reason: Dry Skin Morphine Sulfate (Morphine) 4 mg SLOW IVP Q4H PRN PRN Reason: Severe Pain (7-10) Last Admin: 10/09/18 09:12 Dose: 4 mg Nicotine (Nicoderm Patch) 21 mg TD Q24HR [facility] Last Admin: 10/08/18 12:13 Dose: 21 mg Ondansetron HCl (Zofran Odt) 4 mg PO Q6H PRN PRN Reason: Nausea/Vomiting Last Admin: 10/07/18 17:52 Dose: 4 mg Ondansetron HCl (Zofran) 4 mg IVP Q6H PRN PRN Reason: Nausea/Vomiting Polyethylene Glycol (Miralax) 17 gm PO BIDPRN PRN PRN Reason: Constipation Sodium Chloride ([place] Nasal [place] 0.65%) 0 ml EA NARE QIDPRN PRN PRN Reason: Nasal Congestion Thiamine HCl (Thiamine) 100 mg PO DAILY [facility] Last Admin: 10/09/18 09:09 Dose: 100 mg Throat Lozenges (Cepastat Lozenges) 1 aldo PO Q2H PRN PRN Reason: Sore Throat Zolpidem Tartrate (Ambien) 5 mg PO HSPRN PRN PRN Reason: Insomnia
--- NOTE | 2018-10-09 10:08 | DIS ---
DATE OF ADMISSION: 10/04/2018 DATE OF DISCHARGE: 10/09/2018 PRIMARY CARE PHYSICIAN: Joss Fletcher MD DISCHARGE DISPOSITION: Home. PRIMARY DISCHARGE DIAGNOSES: 1. Acute rhabdomyolysis, improving. 2. Transaminitis due to acute rhabdomyolysis. 3. Hyperkalemia, resolved. 4. Dehydration, corrected. 5. Acute kidney injury, improved. SECONDARY DISCHARGE DIAGNOSES: Chronic low back pain, tobacco abuse disorder, history of polysubstance abuse, chronic alcohol abuse, anxiety and depression, and morbid obesity with BMI 42. PRIMARY PROCEDURE/OPERATION: None. RADIOLOGICAL INVESTIGATION: Abdominal ultrasound unremarkable. Chest x-ray normal. SIGNIFICANT LABORATORY DATA: WBC 8.9, hemoglobin 11.8, and platelet 172. Sodium 139, creatinine 0.87, AST 72, ALT 79, and alkaline phosphatase 39. CK 1457. Albumin 3.4. Urinalysis normal. DISCHARGE MEDICATIONS: 1. Enalapril 10 mg daily. 2. Hydrochlorothiazide 25 mg p.o. daily. 3. Tylenol No. 3 one or two tablets q.6 hourly p.r.n. for pain. CONTRAINDICATION: None. CODE STATUS: Full code. INPATIENT MID WIFE: None. ALLERGIES: NO KNOWN DRUG ALLERGIES. DISCHARGE PLAN: Posthospital, the patient will follow up with primary care physician in 1 or 2 weeks. HOSPITAL COURSE: A 58-year-old male with above-mentioned medical problem, who was admitted by Dr. Prince, please see his H and P for further details. The patient was admitted for rhabdomyolysis. He was also complaining of back pain. He also had acute kidney injury, leukocytosis, and lactic acidosis. His CK was significantly elevated to more than 30,000. He was admitted to the hospital. He was treated with antibiotics initially and he was also given IV fluid. His culture remained negative and that is why antibiotic was discontinued and he was only given IV fluid and with that his condition was significantly improving. His vitals remained stable. He never had any significant fever while in hospital. His CK standing down. The patient is clinically stable. He will follow up with his primary care physician. We advised him about healthy lifestyle measures, including avoidance of tobacco, alcohol, and illicit drugs. I have seen and examined the patient at bedside today. His examination is unremarkable. He is tolerating p.o., well ambulatory. The patient is seen and examined at bedside today. All review of systems reviewed with him is negative. The patient is medically stable for discharge today. Job ID: [id number]
[2018-10-09 11:55] VITALS: BP 151/83; TEMP 97.8
== END 2018-10-09 11:51 | disposition home or self-care (01) | DRG 558 ==
LOC: ERS 04:38 → 2SW 07:52 → OBSVTOIN 07:52 → T4-A 10-08 11:08
PROVIDERS: ADMIT Hospitalist; ATTEND Hospitalist
DX: M62.82 Rhabdomyolysis (principal); N17.9 Acute kidney failure, unspecified; E87.1 Hypo-osmolality and hyponatremia; E87.2 Acidosis; E87.5 Hyperkalemia; E86.0 Dehydration; F10.10 Alcohol abuse, uncomplicated; F17.210 Nicotine dependence, cigarettes, uncomplicated; M10.9 Gout, unspecified; F41.9 Anxiety disorder, unspecified; F32.9 Major depressive disorder, single episode, unspecified
CPT/HCPCS: 36415; 71045; 76705; 80053; 81003; 82550; 82553; 83880; 84484; 85025; 93005; J1650; J1940; J2270; J3411; J3475; J3490; Q0162

== ENCOUNTER 2022-09-15 00:10 | Inpatient (IN) | payer SELFPAY ==
[2022-09-15 01:15] LABS: #Lymphocytes 1.8 thou/uL (1.20-3.40); #Monocytes 0.9 thou/uL (0.11-0.59); #Neutrophils 9.1 thou/uL (1.40-6.50); %Basophils 0.1 % (0.0-1.0); %Eosinophils 0.2 % (0.0-10.0); %Monocytes 7.6 % (0.0-10.0); %Neutrophils 77.2 % (42.0-75.0); Hemoglobin 14.2 g/dL (14.0-18.0); Mean Corpuscular HGB CONC 35.7 g/dL (32.0-36.0); Mean Corpuscular Hemoglobin 30.9 pg (27.0-31.0); Mean Corpuscular Volume 86.5 fl (78.0-98.0); Mean Platelet Volume 8.3 fL (7.4-10.4); Platelet Count 217 10x3/uL (130-400); RBC Distribution Width 13.4 % (11.5-14.5); Red Blood Cell (RBC) Count 4.59 mill/uL (4.70-6.10); White Blood Cell (WBC) Count 11.7 10x3/uL (4.8-10.8)
[2022-09-15 01:35] LABS: Acetaminophen Less than 10.0 mcg/mL (10.0-30.0); Alcohol Less than 10 mg/dL (Less than 10); Salicylate Less than 8.0 mg/dL (15.0-30.0)
[2022-09-15 01:37] LABS: Anion Gap 20 mmol/L (10-20); BUN (Urea Nitrogen) 23 mg/dL (8.4-25.7); Calc. Creatinine Clearance 0 mL/min (70-130); Calcium 9.6 mg/dL (7.8-10.44); Carbon Dioxide 20 mmol/L (22-29); Chloride 101 mmol/L (98-107); Estimated GFR 52; Glucose 80 mg/dL (70-105); Potassium 4.3 mmol/L (3.5-5.1); Sodium 137 mmol/L (136-145)
[2022-09-15 02:13] LABS: CK (CPK) Greater than 40000 U/L (30-200)
[2022-09-15 02:29] LABS: CKMB 360.9 ng/mL (0-6.6)
[2022-09-15 03:01] LABS: Bacteria/HPF None Seen HPF (None Seen); Bilirubin Negative (Negative); Blood, Urine 3+ (Negative); Clarity Clear (Clear); Glucose, Urine (Dipstick) Normal (Negative); Ketone, Urine 10 mg/dL (Negative); Leukocyte Negative Leu/uL (Negative); Nitrite Negative (Negative); Protein, Urine (Dipstick) 20 mg/dL (Neg-Trace); RBC/HPF 0-3 HPF (0-3); Specific Gravity, Urine 1.024 (1.002-1.036); Squamous Epithelial None Seen HPF (0-3); Urobilinogen Normal mg/dL (Less than 2); WBC/HPF 0-3 HPF (0-3); pH, Urine 5.5 (5.0-9.0)
[2022-09-15 03:07] LABS: Amphetamine Not Detected (NotDetected); Barbiturates Screen Not Detected (NotDetected); Benzodiazepine Screen Not Detected (NotDetected); Cocaine Metabolite Screen Detected (NotDetected); Methadone Not Detected (NotDetected); Methamphetamine Not Detected (NotDetected); Opiate Screen Not Detected (NotDetected); Oxycodone Screen Not Detected (NotDetected); Phencyclidine (PCP) Not Detected (NotDetected); THC/Cannabinoid Screen Not Detected (NotDetected); Tricyclic Screen Not Detected (NotDetected)
[2022-09-15] MEDS: Sodium Chloride 0.9% 1,000 ML IV SCH ×5 (04:55→20:51)
[2022-09-15 07:38] VITALS: BMI 50.1
[2022-09-15 08:46] LABS: Troponin I 0.017 ng/mL (< 0.028)
[2022-09-15] MEDS ORDERED: Iopamidol-370 76% 500 ML MDV (1 ML CHARGE) ONE (09:30)
[2022-09-15 11:06] LABS: Troponin I 0.018 ng/mL (< 0.028)
[2022-09-16] MEDS: Acetaminophen 325 MG TAB PO PRN ×3 (00:45→21:18)
[2022-09-16] MEDS: Sodium Chloride 0.9% 1,000 ML IV SCH ×5 (00:47→21:27)
[2022-09-16 06:48] LABS: CK (CPK) 18094 U/L (30-200)
[2022-09-16 06:52] LABS: ALT (SGPT) 126 U/L (8-55); AST (SGOT) 427 U/L (5-34); Albumin 3.3 g/dL (3.5-5.0); Alkaline Phosphatase 44 U/L (40-110); Anion Gap 13 mmol/L (10-20); BUN (Urea Nitrogen) 15 mg/dL (8.4-25.7); Bilirubin, Total 0.4 mg/dL (0.2-1.2); Calc. Creatinine Clearance 170 mL/min (70-130); Calcium 7.9 mg/dL (7.8-10.44); Carbon Dioxide 20 mmol/L (22-29); Chloride 110 mmol/L (98-107); Estimated GFR 100; Globulin 2.3 g/dL (2.4-3.5); Glucose 99 mg/dL (70-105); Potassium 4.4 mmol/L (3.5-5.1); Protein, Total 5.6 g/dL (6.0-8.3); Sodium 139 mmol/L (136-145)
[2022-09-16 08:07] LABS: #Eosinphils 0.2 thou/uL (0.0-0.7); #Lymphocytes 2.8 thou/uL (1.20-3.40); #Monocytes 0.6 thou/uL (0.11-0.59); #Neutrophils 2.4 thou/uL (1.40-6.50); %Basophils 0.3 % (0.0-1.0); %Eosinophils 2.6 % (0.0-10.0); %Lymphocytes 46.8 % (21.0-51.0); %Monocytes 10.1 % (0.0-10.0); %Neutrophils 40.2 % (42.0-75.0); Hemoglobin 12.5 g/dL (14.0-18.0); Mean Corpuscular HGB CONC 35.4 g/dL (32.0-36.0); Mean Corpuscular Hemoglobin 30.7 pg (27.0-31.0); Mean Corpuscular Volume 86.7 fl (78.0-98.0); Mean Platelet Volume 8.5 fL (7.4-10.4); Platelet Count 196 10x3/uL (130-400); RBC Distribution Width 13.3 % (11.5-14.5); Red Blood Cell (RBC) Count 4.07 mill/uL (4.70-6.10); White Blood Cell (WBC) Count 5.9 10x3/uL (4.8-10.8)
[2022-09-17 05:04] LABS: #Eosinphils 0.2 thou/uL (0.0-0.7); #Lymphocytes 3.1 thou/uL (1.20-3.40); #Monocytes 0.5 thou/uL (0.11-0.59); #Neutrophils 2.6 thou/uL (1.40-6.50); %Basophils 0.3 % (0.0-1.0); %Eosinophils 3.5 % (0.0-10.0); %Lymphocytes 48.1 % (21.0-51.0); %Monocytes 7.9 % (0.0-10.0); %Neutrophils 40.2 % (42.0-75.0); Hemoglobin 11.8 g/dL (14.0-18.0); Mean Corpuscular HGB CONC 35.2 g/dL (32.0-36.0); Mean Corpuscular Hemoglobin 30.8 pg (27.0-31.0); Mean Corpuscular Volume 87.5 fl (78.0-98.0); Mean Platelet Volume 8.5 fL (7.4-10.4); Platelet Count 188 10x3/uL (130-400); RBC Distribution Width 13.4 % (11.5-14.5); Red Blood Cell (RBC) Count 3.85 mill/uL (4.70-6.10); White Blood Cell (WBC) Count 6.4 10x3/uL (4.8-10.8)
[2022-09-17 05:25] LABS: ALT (SGPT) 124 U/L (8-55); AST (SGOT) 306 U/L (5-34); Albumin 3.4 g/dL (3.5-5.0); Alkaline Phosphatase 41 U/L (40-110); Anion Gap 12 mmol/L (10-20); BUN (Urea Nitrogen) 13 mg/dL (8.4-25.7); Bilirubin, Total 0.4 mg/dL (0.2-1.2); Calc. Creatinine Clearance 164 mL/min (70-130); Calcium 8.4 mg/dL (7.8-10.44); Carbon Dioxide 24 mmol/L (22-29); Chloride 107 mmol/L (98-107); Estimated GFR 99; Globulin 2.4 g/dL (2.4-3.5); Glucose 118 mg/dL (70-105); Potassium 4.2 mmol/L (3.5-5.1); Protein, Total 5.8 g/dL (6.0-8.3); Sodium 139 mmol/L (136-145)
[2022-09-17 05:51] LABS: CK (CPK) 9647 U/L (30-200)
[2022-09-17] MEDS: Sodium Chloride 0.9% 1,000 ML IV SCH ×5 (06:46→20:34)
[2022-09-18] MEDS: Sodium Chloride 0.9% 1,000 ML IV SCH ×2 (00:42→05:36)
[2022-09-18 05:08] LABS: #Basophils 0.1 thou/uL (0.0-0.2); #Eosinphils 0.3 thou/uL (0.0-0.7); #Lymphocytes 3.1 thou/uL (1.20-3.40); #Monocytes 0.6 thou/uL (0.11-0.59); #Neutrophils 3.1 thou/uL (1.40-6.50); %Basophils 1.1 % (0.0-1.0); %Eosinophils 3.6 % (0.0-10.0); %Lymphocytes 43.4 % (21.0-51.0); %Monocytes 8.5 % (0.0-10.0); %Neutrophils 43.6 % (42.0-75.0); Hemoglobin 12.2 g/dL (14.0-18.0); Mean Corpuscular HGB CONC 35.2 g/dL (32.0-36.0); Mean Corpuscular Hemoglobin 30.8 pg (27.0-31.0); Mean Corpuscular Volume 87.6 fl (78.0-98.0); Mean Platelet Volume 8.7 fL (7.4-10.4); Platelet Count 187 10x3/uL (130-400); RBC Distribution Width 13.8 % (11.5-14.5); Red Blood Cell (RBC) Count 3.94 mill/uL (4.70-6.10); White Blood Cell (WBC) Count 7.2 10x3/uL (4.8-10.8)
[2022-09-18 05:27] LABS: Anion Gap 13 mmol/L (10-20); BUN (Urea Nitrogen) 14 mg/dL (8.4-25.7); Calc. Creatinine Clearance 176 mL/min (70-130); Carbon Dioxide 24 mmol/L (22-29); Chloride 108 mmol/L (98-107); Potassium 4.2 mmol/L (3.5-5.1); Sodium 141 mmol/L (136-145)
[2022-09-18 05:28] LABS: ALT (SGPT) 114 U/L (8-55); AST (SGOT) 186 U/L (5-34); Albumin 3.4 g/dL (3.5-5.0); Alkaline Phosphatase 46 U/L (40-110); Bilirubin, Total 0.2 mg/dL (0.2-1.2); CK (CPK) 3869 U/L (30-200); Calcium 8.8 mg/dL (7.8-10.44); Estimated GFR 102; Globulin 2.4 g/dL (2.4-3.5); Glucose 98 mg/dL (70-105); Protein, Total 5.8 g/dL (6.0-8.3)
[2022-09-18 07:50] VITALS: BP 153/94; TEMP 97.5
== END 2022-09-18 10:30 | disposition home or self-care (01) | DRG 683 ==
LOC: ERS 00:10 → ERHOLD 04:30 → 2NO 04:52
PROVIDERS: ADMIT Internal Medicine; ATTEND Internal Medicine
DX: N17.9 Acute kidney failure, unspecified (principal); I24.8 Other forms of acute ischemic heart disease; M62.82 Rhabdomyolysis; Z68.41 Body mass index [BMI] 40.0-44.9, adult; I95.1 Orthostatic hypotension; E66.01 Morbid (severe) obesity due to excess calories; I10 Essential (primary) hypertension; F17.210 Nicotine dependence, cigarettes, uncomplicated; F41.9 Anxiety disorder, unspecified; F32.A Depression, unspecified; Z79.01 Long term (current) use of anticoagulants; Z79.899 Other long term (current) drug therapy
CPT/HCPCS: 36415; 70450; 71045; 71275; 72125; 74174; 80048; 80053; 80306; 80307; 81003; 81015; 82550; 82553; 84484; 85025; 93005; 93306; 94760; 96360; 96361; J1650; J7050; Q9967